=== PATIENT | female | born 1985 | race Hispanic/Latino ===

== ENCOUNTER 2025-02-02 18:12 | Emergency (ER) | payer SELFPAY ==
[~2025-02-02] VITALS: Ht 160 cm; Wt 118.5 kg
[2025-02-02 18:23] VITALS: PULSE 96; RESP 18; TEMP 98.8; O2SAT 96
[2025-02-02] MEDS ORDERED: IBUPROFEN600 MG PO (18:36)
[2025-02-02] MEDS ORDERED: TYLENOL325 MG PO (18:36)
== END 2025-02-02 18:43 | disposition home or self-care (01) ==
LOC: FSED 18:18
DX: R07.89 Other chest pain (principal); M25.552 Pain in left hip; V53.5XXA Driver of pick-up truck or van injured in collision with car, pick-up truck or van in traffic accident, initial encounter; Y92.488 Other paved roadways as the place of occurrence of the external cause
CPT/HCPCS: 99283